=== PATIENT | female | born 1965 | race African-American/Black ===

== ENCOUNTER 2020-09-12 08:49 | Emergency (ER) | payer BC ==
[~2020-09-12] VITALS: Ht 170.2 cm; Wt 90.7 kg
--- NOTE | 2020-09-12 09:10 | NUR ---
BIB SON DUE TO AGITATION AND THINKS THAT IT'S HER CONDITION GETTING WORSE. PATIENT'S A/OX2, VERBALLY RESPONSIVE, NO DISTRESS NOTED. PATIENT RE-DIRECTIBLE. SON AT BEDSIDE.
--- NOTE | 2020-09-12 09:30 | NUR ---
URINE CUP PROVIDED. COVID SWAB SENT.
[2020-09-12 09:37] LABS: HEMATOCRIT 40 % (33-45); HEMOGLOBIN 13.1 g/dL (11.5-14.8); LYMPHOCYTES # (AUTO) 1.4 K/uL (0.8-4.8); MEAN CORPUSCULAR HGB CONC 32 g/dl (31.0-36.0); MEAN CORPUSCULAR VOLUME 90 fL (82-100); MONOCYTES # (AUTO) 0.3 K/uL (0.1-1.30); MONOCYTES % (AUTO) 8.2 % (2.0-12.0); NEUTROPHILS # (AUTO) 2.4 K/uL (1.8-8.9); NEUTROPHILS % (AUTO) 56.8 % (43.0-81.0); PLATELET COUNT (AUTO) 266 K/uL (150-450); RED BLOOD CELL COUNT(AUTO) 4.48 MIL/uL (4.0-5.2); WHITE BLOOD COUNT (AUTO) 4.3 K/uL (4.3-11.0)
--- NOTE | 2020-09-12 09:45 | NUR ---
CAME BACK FROM CT. GAVE PATIENT PLENTY OF WATER, UNABLE TO GIVE URINE AT THIS TIME.
[2020-09-12 09:47] LABS: CALCIUM, SERUM 9.8 mg/dL (8.5-10.1); CARBON DIOXIDE 26 mmol/L (21-32); CHLORIDE 105 mmol/L (98-107); CREATININE 0.9 mg/dL (0.6-1.3); GLUCOSE 83 mg/dL (74-106); POTASSIUM 4.6 mmol/L (3.5-5.1); SODIUM SERUM 140 mmol/L (136-145); UREA NITROGEN, BLOOD 13 mg/dL (7-18)
[2020-09-12 09:51] LABS: ACETAMINOPHEN < 3 ug/ml (10-30); ALANINE AMINOTRANSFERASE 18 U/L (12-78); ALBUMIN 4.5 g/dL (3.4-5.0); ALCOHOL, BLOOD 0 mg/dL (0-0); ALKALINE PHOSPHATASE 50 U/L (46-116); ASPARTATE AMINOTRANSFERASE 18 U/L (15-37); BILIRUBIN,DIRECT 0.1 mg/dL (0.0-0.2); BILIRUBIN,TOTAL 0.6 mg/dL (0.2-1.0); TOTAL PROTEIN, SERUM 8.8 g/dL (6.4-8.2)
--- NOTE | 2020-09-12 10:34 | NUR ---
UNABLE TO PROVIDE URINE AT THIS TIME.
[2020-09-12 11:01] LABS: BILIRUBIN,URINE SMALL (NEGATIVE); COLOR,URINE DARK YELLOW (YELLOW); LEUKOCYTE ESTERASE ,URINE Negative (NEGATIVE); NITRITE, URINE Negative (NEGATIVE); PH,URINE 5.5 (5.0-8.0); PROTEIN,URINE 100 mg/dl (NEGATIVE); UGLUCOSE Negative (NEGATIVE); UROBILINOGEN,URINE 0.2 EU/dL (0.2)
--- NOTE | 2020-09-12 11:01 | NUR ---
TRAIN OPERATIONS MANAGER AT BEDSIDE FOR CONSULT.
[2020-09-12 11:10] LABS: RBC,URINE TOO NUMEROUS TO COUN /HPF (0-2)
[2020-09-12 11:12] LABS: BACTERIA,URINE None seen /HPF (None Seen)
[2020-09-12 11:13] LABS: SQUAMOUS EPITHELIAL CELL,UR Few /HPF (None Seen)
[2020-09-12 11:14] LABS: RED BLOOD CELL CASTS,URINE Rare /LPF (None Seen)
--- NOTE | 2020-09-12 11:44 | NUR ---
Patient discharged to home in stable condition. Written and verbal after care instructions given. Patient verbalizes understanding of instruction. Pt ambulatory with a steady gait
[2020-09-12 11:45] VITALS: BP 130/78
--- NOTE | 2020-09-12 11:50 | NUR ---
11:00am: Tobacco Stemmer Consultation: Tobacco Stemmer consultation requested for agitation and assessment of patient's needs. Per ED physician's note, patient was brought in to the ED by her son for agitation. This NEWSPAPER VENDOR met with the patient in her assigned ED room. Patient's son Josef was bedside. Patient is a 55 year old female, who was sitting in her ED hospital bed, observed to be calm and receptive to meeting with this NEWSPAPER VENDOR. Per patient's and son's report, patient attempted to get into the wrong car this morning, claiming that it was her own car. Per son, patient may have gotten confused, as the car was white and patient used to drive a white car. Patient currently does not drive. 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 Patient denies any recent alcohol abuse, stating that she has not drank alcohol for over 2 years. Patient was cooperative with this NEWSPAPER VENDOR throughout the interview, maintained appropriate eye contact, and was appropriately engaged in the interview. Patient has been living in [facility] with her sister for the past year, and just returned to [place] about 3 weeks ago. Patient is currently living with her son. Patient is ambulatory and independent with ADL's. Patient is oriented x 4, and even mentioned that today is Day in [facility]. Patient denies SI or HI. Patient denies hallucinations. No delusional thoughts observed. Patient has a PCP, Dr. Avalos in [place], which patient's son stated patient has not seen in a year since patient was living in [facility], however patient has an appointment scheduled for October 03. Patient has a neurologist, Dr. Farley in [place], who patient also hasn't seen in a year since she was living in [facility], however has an appointment with him on September 28. Patient's son stated that patient will be going to both appointments. Patient's psychosocial needs explored, and patient's son expressed concerns about future placement and the need for caregivers. This NEWSPAPER VENDOR provided the patient and patient's son with the following resources: 1) Information handout on [employer], along with the [employer] application 2) Caregiver agency brochures: [facility], and [facility], 3) [employer] Guide to Detention and Care booklet Patient and son were both receptive of these resources. This NEWSPAPER VENDOR informed Dr. Thorpe of above. No further SS interventions needed at this time. Patient to discharge home with son, once medically cleared.
== END 2020-09-12 11:45 | disposition home or self-care (01) ==
LOC: ER 08:54
DX: R45.1 Restlessness and agitation (principal); R31.9 Hematuria, unspecified; Z20.822 Contact with and (suspected) exposure to COVID-19; F10.26 Alcohol dependence with alcohol-induced persisting amnestic disorder; Y90.0 Blood alcohol level of less than 20 mg/100 ml
CPT/HCPCS: 36415; 70450; 80048; 80076; 80143; 80307; 80320; 81001; 85025; 87426; 99284; C9803; G0480